=== PATIENT | female | born 1985 | race Caucasian/White ===

== ENCOUNTER 2018-08-25 03:26 | Emergency (ER) | payer SELFPAY ==
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
== END 2018-08-25 04:40 | disposition home or self-care (01) ==
LOC: ER 03:26
DX: M54.9 Dorsalgia, unspecified (principal); Z91.013 Allergy to seafood; V89.2XXA Person injured in unspecified motor-vehicle accident, traffic, initial encounter; Y93.89 Activity, other specified; Y92.410 Unspecified street and highway as the place of occurrence of the external cause; Y99.8 Other external cause status
CPT/HCPCS: 99283; 96372; 81025; J1885; Z7502